=== PATIENT | male | born 1960 ===

== ENCOUNTER 2017-09-16 21:31 | Emergency (ER) | payer MEDICAID ==
[2017-09-16 22:09] VITALS: TEMP 97.5
[2017-09-16] MEDS ORDERED: Albuterol-Ipratrop 3 mg / 0.5 (3 ml) UD ONE (22:19)
[2017-09-16] MEDS ORDERED: TDAP Vaccine 0.5 mL Syr IM ONE (22:47)
[2017-09-16] MEDS ORDERED: Albuterol 0.083% Inhal Sol (2.5 mg/3 mL) UD IH STA (22:48)
[2017-09-16 23:15] LABS: BASO # 0.05 K/mm3 (0.0-2.0); BASO % 0.5 % (0.0-3.0); EOS # 0.3 (0.0-0.7); EOS % 2.8 % (1.5-5.0); GRAN # 6.24 (1.4-6.5); GRAN % 61.3 % (50.0-68.0); HEMOGLOBIN 16.9 g/dL (14.0-18.0); LYMPH % 29.5 % (22.0-35.0); MEAN CELL VOLUME 96.8 fl (80.0-105.0); MEAN CORPUSCULAR HEMOGLOBIN 33.7 pg (25.0-35.0); MEAN CORPUSCULAR HGB CONC 34.8 g/dl (31.0-37.0); MEAN PLATELET VOLUME 10.3 fl (7.0-11.0); MONO # 0.6 (0.1-0.6); MONO % 5.9 % (1.0-6.0); RBC 5.01 10^6/uL (3.5-6.1); WHITE BLOOD COUNT 10.2 10^3/ul (4.5-11.0)
[2017-09-16 23:21] LABS: ALB/GLOB RATIO 1.5 (1.1-1.8); ALBUMIN 5.1 g/dL (3.0-4.8); ALT/SGPT 27 U/L (7-56); AST/SGOT 27 U/L (17-59); BLOOD UREA NITROGEN 8 mg/dL (7-21); CALCIUM 9.8 mg/dL (8.4-10.5); GFR AFRICAN-AMERICAN > 60; GFR NON-AFRICAN AMERICAN > 60
[2017-09-16 23:56] LABS: INR 0.96 (0.93-1.08); PARTIAL THROMBOPLASTIN TIME 31.1 Seconds (25.1-36.5); PROTHROMBIN TIME 10.9 SECONDS (9.4-12.5)
--- NOTE | 2017-09-17 02:38 | ED PDOC ---
Arrival/HPI - General Historian: Patient, EMS - History of Present Illness Time/Duration: Prior to Arrival <Lizbeth Terrazas - Last Filed: 09/17/17 02:57> <Nicola Henderson - Last Filed: 09/17/17 06:24> - General Chief Complaint: Trauma Time Seen by Provider: 09/16/17 22:13 - History of Present Illness Narrative History of Present Illness (Text): 09/17/17 02:27 57yr old male presents today status post fall. Patient admits to drinking alcohol today. Patient denies chest pain. Patient states he tripped and fell forward hitting his head. Patient states she was supposed to have a neck surgery today that it was canceled because of issues with the surgeon. Patient denies numbness weakness or tingling in the extremities. Patient denies fevers or chills. Patient states he has a history of asthma and thinks he may need a breathing treatment. Patient is unsure of his last tetanus shot. pt denies abdominal pain, no n/v/d/c. no other complaints. (Lizbeth Terrazas) Past Medical History - Provider Review Nursing Documentation Reviewed: Yes - Travel History Have you recently traveled outside [place] w/in the past 3 mons?: No - Infectious Disease Hx of Infectious Diseases: None - Tetanus Immunization Tetanus Immunization: Unknown - Psychiatric Hx Substance Use: No <Lizbeth Terrazas - Last Filed: 09/17/17 02:57> Family/Social History - Physician Review Nursing Documentation Reviewed: Yes Family/Social History: Unknown Family HX Smoking Status: Unknown If Ever Smoked Hx Alcohol Use: Yes Hx Substance Use: No <Lizbeth Terrazas - Last Filed: 09/17/17 02:57> Allergies/Home Meds <Lizbeth Terrazas - Last Filed: 09/17/17 02:57> <Nicola Henderson - Last Filed: 09/17/17 06:24> Allergies/Adverse Reactions: Allergies No Known Allergies Allergy (Verified 09/16/17 22:14) Home Medications: Home Meds Medication Instructions Recorded Confirmed Unobtainable 09/16/17 09/16/17 Review of Systems - Review of Systems Constitutional: absent: Fevers Respiratory: Wheezing. absent: SOB, Cough Cardiovascular: absent: Chest Pain, Palpitations Gastrointestinal: absent: Abdominal Pain, Constipation, Diarrhea, Nausea, Vomiting Genitourinary Male: absent: Dysuria, Frequency, Hematuria Musculoskeletal: Back Pain (chronic back pain), Neck Pain (chronic). absent: Arthralgias Skin: Laceration (scalp), Other (abrasion: forehead) Neurological: absent: Headache Psychiatric: absent: Anxiety, Depression, Suicidal Ideation <Lizbeth Terrazas - Last Filed: 09/17/17 02:57> Physical Exam Vital Signs Reviewed: Yes Temperature: Afebrile Blood Pressure: Normal Pulse: Tachycardic Respiratory Rate: Normal Appearance: Positive for: Well-Appearing, Non-Toxic, Comfortable Pain Distress: None Mental Status: Positive for: Alert and Oriented X 3 Finger Stick Blood Glucose: 92 - Systems Exam Head: Present: Abrasion (2 small abrasions noted to right forehead), Laceration (2cm linear laceration noted to left posterior scalp; no active bleeding; no step offs or crepitus). No: Atraumatic Pupils: Present: PERRL Extroacular Muscles: Present: EOMI Conjunctiva: Present: Normal Mouth: Present: Moist Mucous Membranes Neck: Present: Normal Range of Motion, Trachea Midline. No: MIDLINE TENDERNESS , Paraspinal Tenderness Respiratory/Chest: Present: Clear to Auscultation, Good Air Exchange. No: Respiratory Distress, Accessory Muscle Use, Wheezes, Retracting, Rhonchi, Tachypneic Cardiovascular: Present: Tachycardic Abdomen: No: Tenderness, Distention, Rebound, Guarding Back: Present: Normal Inspection. No: Midline Tenderness, Paraspinal Tenderness Upper Extremity: Present: Normal ROM Lower Extremity: Present: Normal ROM Neurological: Present: GCS=15, Speech Normal Skin: Present: Warm, Dry, Normal Color Psychiatric: Present: Alert, Oriented x 3, Intoxicated. No: Suicidal Ideation, Homicidal Ideation <Lizbeth Terrazas - Last Filed: 09/17/17 02:57> Vital Signs Temp Pulse Resp BP Pulse Ox 09/17/17 05:03 86 16 102/53 L 96 09/17/17 02:21 89 18 100/56 L 95 09/17/17 00:51 101 H 20 119/43 L 94 L 09/16/17 21:37 97.5 F L 107 H 16 150/90 98 Medical Decision Making <Lizbeth Terrazas - Last Filed: 09/17/17 02:57> <Nicola Henderson - Last Filed: 09/17/17 06:24> ED Course and Treatment: 09/17/17 02:44 57yr old male with head injury s/p fall. pt intoxicated; alert and oriented; pt requesting "albuterol pump" states he has asthma; albuterol nebulizer given; tetanus updated. ct of head ordered. cbc: wnl cmp: NA; 150 glucose:130 pt/inr; wnl cxr; wnl wounds irrigated with copious amounts of NS using high pressure irrigation. pt became agitated in ER; started yelling and screaming and threatening staff. pt placed into 4 point restraints and given 2 of ativan IM. for safety of patient and staff. pt is refusing CT of head; pt refusing laceration repair with jocelyn or sutures; pt has agreed to laceration repair of scalp with dermabond. 09/17/17 02:51 case signed out to dr. henderson pending CT head, sobriety and re-evaluation (Lizbeth Terrazas) 09/17/17 03:32: Case endorsed to me by SHAHIDA Terrazas. Pending Head CT and sobriety. Will re-evaluate and disposition. 09/17/17 06:22 Pt. is awake,alert sober with steady gait in ED. (Nicola Henderson) - Lab Interpretations Lab Results: 09/16/17 23:00 09/16/17 23:00 Lab Results 09/16/17 23:00: WBC 10.2, RBC 5.01, Hgb 16.9, Hct 48.5, MCV 96.8, MCH 33.7, MCHC 34.8, RDW 12.0, Plt Count 291, MPV 10.3, Gran % 61.3, Lymph % (Auto) 29.5, [facility] % (Auto) 5.9, Eos % (Auto) 2.8, Baso % (Auto) 0.5, Gran # 6.24, Lymph # ( Auto) 3.0, [facility] # (Auto) 0.6, Eos # (Auto) 0.3, Baso # (Auto) 0.05 09/16/17 23:00: Alcohol, Quantitative 266 H 09/16/17 23:00: Sodium 152 H, Potassium 4.3, Chloride 110 H, Carbon Dioxide 25, Anion Gap 21 H, BUN 8, Creatinine 1.0, Est GFR ( Amer) > 60, Est GFR (Non -Af Amer) > 60, Random Glucose 130 H, Calcium 9.8, Total Bilirubin 0.4, AST 27, ALT 27, Alkaline Phosphatase 98, Total Protein 8.5 H, Albumin 5.1 H, Globulin 3.4, Albumin/Globulin Ratio 1.5 09/16/17 23:00: PT 10.9, INR 0.96, APTT 31.1 - RAD Interpretation Radiology Orders: 09/16/17 22:14 CERVICAL SPINE W/O CONTRAST [CT] Stat HEAD W/O CONTRAST [CT] Stat CHEST PORTABLE [RAD] Stat - Medication Orders Current Medication Orders: Discontinued Medications Albuterol Sulfate (Albuterol 0.083% Inhal Yoana (2.5 Mg/3 Ml) Ud) 2.5 mg IH STAT STA Stop: 09/16/17 22:49 Last Admin: 09/16/17 22:19 Dose: 2.5 mg Lorazepam (Ativan) 2 mg IM ONCE ONE PRN Reason: Protocol Stop: 09/16/17 23:41 Last Admin: 09/16/17 23:42 Dose: 2 mg IM Administration Charges Document 09/16/17 23:42 CNR (Rec: 09/17/17 00:33 CNR [id number]) Injection Site MAR Injection Site Right Deltoid Charges for Administration # of IM Administrations 1 Tetanus/Reduced Diphtheria/Acell Pertussis (Boostrix Vaccine Inj) 0.5 ml IM .ONCE ONE Stop: 09/16/17 22:48 Last Admin: 09/16/17 23:07 Dose: 0.5 ml Immunization Registry Document 09/16/17 23:07 CNR (Rec: 09/16/17 23:07 CNR [id number]) Immunization Registry Consent Date 09/16/17 Procedure: Wound Repair - Procedure Procedure: Wound Repair: scalp laceration - Consent Obtained Consent obtained: Verbal - Performed by Performed by: Mid-level Provider - Indications Indication(s):: Laceration - Location Dimensions Length cm: 2cm Depth:: Epidermis - Debris Debris:: None - Irrigated Irrigated with ml of normal saline: copious amounts of NS using high pressure irrigation - Complexity Complexity:: Simple (one layer) - Wound repair method [place]:: Tissue glue - Complications Complications: none - Patient tolerated procedure Patient Tolerated Procedure:: Well <Lizbeth Terrazas - Last Filed: 09/17/17 02:57> - PA / ED PHYSICIANS / Resident Statement / has reviewed & agrees with the documentation as recorded. / has examined the patient and agrees with the treatment plan. <Nicola Henderson - Last Filed: 09/17/17 06:24> Disposition/Present on Arrival - Present on Arrival Any Indicators Present on Arrival: No History of DVT/PE: No History of Uncontrolled Diabetes: No Urinary Catheter: No History of Decub. Ulcer: No History Surgical Site Infection Following: None - Disposition Have Diagnosis and Disposition been Completed?: Yes <Lizbeth Terrazas - Last Filed: 09/17/17 02:57> - Present on Arrival Any Indicators Present on Arrival: No - Disposition Have Diagnosis and Disposition been Completed?: Yes Disposition Time: 06:21 Patient Plan: Discharge <AnthonyNicola - Last Filed: 09/17/17 06:24> - Disposition Diagnosis: Alcohol abuse, Head injury, Laceration of head, Abrasion of forehead Disposition: HOME/ ROUTINE Patient Problems: Current Active Problems Problem Status Onset Abrasion of forehead Acute Alcohol abuse Acute Head injury Acute Laceration of head Acute Condition: GOOD Discharge Instructions (ExitCare): Closed Head Injury (DC), Alcohol Abuse and Alcoholism (DC) Additional Instructions: follow up with the primary care physician keep wounds clean and dry apply bacitracin twice daily return immediately if symptoms worsen,persist or if new symptoms develop. Referrals: [facility] at [facility] [place]] - Follow up with primary Forms: [employer] (Spanish), WORK NOTE
[2017-09-17 05:04] VITALS: BP 102/53; PULSE 86; RESP 16; O2SAT 96
--- NOTE | 2017-09-17 05:57 | CT ---
EXAM: CT Head Without Intravenous Contrast CLINICAL HISTORY: 57 years old, male; Pain; Headache TECHNIQUE: Axial computed tomography images of the head/brain without intravenous contrast. All CT scans at this facility use one or more dose reduction techniques, viz.: automated exposure control; ma/kV adjustment per patient size (including targeted exams where dose is matched to indication; i.e. head); or iterative reconstruction technique. Coronal and sagittal reformatted images were created and reviewed. COMPARISON: No relevant prior studies available. FINDINGS: Brain: Minimal atrophy. No intracranial hemorrhage. No mass. No definite edema. Ventricles: No hydrocephalus. Bones/joints: No acute fracture. Soft tissues: Unremarkable. Sinuses: No acute sinusitis. Mastoid air cells: No mastoid effusion. Orbits: Unremarkable as visualized. IMPRESSION: 1. No definite acute intracranial abnormality. 2. Incidental/non-acute findings are described above.
--- NOTE | 2017-09-17 06:01 | CT ---
EXAM: CT Cervical Spine Without Intravenous Contrast CLINICAL HISTORY: 57 years old, male; Pain; Neck pain TECHNIQUE: Axial computed tomography images of the cervical spine without intravenous contrast. All CT scans at this facility use one or more dose reduction techniques, viz.: automated exposure control; ma/kV adjustment per patient size (including targeted exams where dose is matched to indication; i.e. head); or iterative reconstruction technique. Coronal and sagittal reformatted images were created and reviewed. COMPARISON: No relevant prior studies available. FINDINGS: Vertebrae: No acute fracture. Anterior osteophytes within mid to lower cervical spine. Early facet osteoarthrosis. Discs/spinal canal/neural foramina: Early degenerative disc disease within mid and lower cervical spine. Mild disc herniation C5-C6 level. No significant spinal stenosis. Soft tissues: Unremarkable. Sinuses: Mild mucosal thickening of visualized RIGHT maxillary sinus. Lung apices: Bullous changes/scarring. IMPRESSION: 1. No fracture. 2. If neck pain persists, consider MRI for further evaluation. 3. Incidental/non-acute findings are described above.
--- NOTE | 2017-09-17 08:47 | RAD ---
HISTORY: Fall. COMPARISON: No prior. FINDINGS: LUNGS: No active pulmonary disease. PLEURA: No significant pleural effusion identified, no pneumothorax apparent. CARDIOVASCULAR: Normal. OSSEOUS STRUCTURES: No significant abnormalities. VISUALIZED UPPER ABDOMEN: Normal. OTHER FINDINGS: None. IMPRESSION: No active disease.
== END 2017-09-17 06:44 | disposition home or self-care (01) ==
LOC: ED 21:31
DX: S00.81XA Abrasion of other part of head, initial encounter (principal); S01.01XA Laceration without foreign body of scalp, initial encounter; W01.0XXA Fall on same level from slipping, tripping and stumbling without subsequent striking against object, initial encounter; F10.10 Alcohol abuse, uncomplicated; Z23 Encounter for immunization
CPT/HCPCS: 12001; 70450; 71045; 72125; 80053; 80320; 85025; 85610; 85730; 90471; 90715; 94640; 96372; 99285; J2060

== ENCOUNTER 2017-09-20 15:32 | Emergency (ER) | payer MEDICAID ==
--- NOTE | 2017-09-20 16:29 | ED PDOC ---
Arrival/HPI - General Chief Complaint: Suture/Staple Removal Time Seen by Provider: 09/20/17 16:24 Historian: Patient - History of Present Illness Narrative History of Present Illness (Text): 09/20/17 16:26 57yr old male presents today for wound check to scalp. pt was seen in er on for alcohol intoxication with fall. pt denies fever/chills. pt states he wasnt sure if he had glue or jocelyn/sutures. pt denies dizziness or weakness. no cp or sob. no abdominal pain. no n/v/d/c. Past Medical History - Provider Review Nursing Documentation Reviewed: Yes - Travel History Have you recently traveled outside [place] w/in the past 3 mons?: No - Infectious Disease Hx of Infectious Diseases: None - Tetanus Immunization Tetanus Immunization: Up to Date - Psychiatric Hx Substance Use: No Family/Social History - Physician Review Nursing Documentation Reviewed: Yes Family/Social History: Unknown Family HX Smoking Status: Unknown If Ever Smoked Hx Alcohol Use: Yes Hx Substance Use: No Allergies/Home Meds Allergies/Adverse Reactions: Allergies No Known Allergies Allergy (Verified 09/16/17 22:14) Home Medications: Home Meds Medication Instructions Recorded Confirmed No Known Home Med 09/20/17 09/20/17 Review of Systems - Review of Systems Constitutional: absent: Fatigue, Fevers Respiratory: absent: SOB, Cough Cardiovascular: absent: Chest Pain, Palpitations Gastrointestinal: absent: Abdominal Pain, Constipation, Diarrhea, Nausea, Vomiting Genitourinary Male: absent: Dysuria Musculoskeletal: Back Pain (chronic), Neck Pain (chronic). absent: Arthralgias Skin: Laceration (scalp laceration) Neurological: absent: Headache, Dizziness, Focal Weakness, Gait Changes, Speech Changes, Facial Droop, Disequilibrium Psychiatric: absent: Anxiety, Depression, Suicidal Ideation Physical Exam Vital Signs Reviewed: Yes Vital Signs Temp Pulse Resp BP Pulse Ox 09/20/17 16:05 98.2 F 90 17 129/84 96 Temperature: Afebrile Blood Pressure: Normal Pulse: Regular Respiratory Rate: Normal Appearance: Positive for: Well-Appearing, Non-Toxic, Comfortable Pain Distress: None Mental Status: Positive for: Alert and Oriented X 3 - Systems Exam Head: Present: Laceration (there is a healing laceration to posterior scalp with dermabond in place; no erythema, no edema, no ecchymosis) Pupils: Present: PERRL Extroacular Muscles: Present: EOMI Mouth: Present: Moist Mucous Membranes Neck: Present: Normal Range of Motion. No: MIDLINE TENDERNESS, Paraspinal Tenderness Respiratory/Chest: Present: Clear to Auscultation, Good Air Exchange. No: Respiratory Distress, Accessory Muscle Use Cardiovascular: Present: Regular Rate and Rhythm, Normal S1, S2. No: Murmurs Abdomen: No: Tenderness Upper Extremity: Present: Normal ROM Lower Extremity: Present: Normal ROM Neurological: Present: GCS=15, Speech Normal Skin: Present: Warm, Dry, Normal Color Psychiatric: Present: Alert, Oriented x 3 Medical Decision Making ED Course and Treatment: 09/20/17 16:31 57yr old male presents for wound check. pt with healing laceration to scalp; dermabond in place. no surrounding erythema /edema. pt was advised to f/u with PMD, advised return if any concerning symptoms develop. Patient verbalizes understanding of discharge instructions and need for immediate followup. all aspects of this case were discussed the attending of record. impression: wound check, scalp laceration keep wound clean and dry follow up with the primary care physician within the next 2 days increase fluids return if symptoms worsen,persist or if new symptoms develop. Disposition/Present on Arrival - Present on Arrival Any Indicators Present on Arrival: No History of DVT/PE: No History of Uncontrolled Diabetes: No Urinary Catheter: No History of Decub. Ulcer: No History Surgical Site Infection Following: None - Disposition Have Diagnosis and Disposition been Completed?: Yes Diagnosis: Encounter for wound re-check Disposition: HOME/ ROUTINE Disposition Time: 16:42 Patient Plan: Discharge Condition: GOOD Additional Instructions: keep wound clean and dry follow up with the primary care physician within the next 2 days increase fluids return if symptoms worsen,persist or if new symptoms develop. Referrals: [facility] at [facility] [place] [Outside] - Follow up with primary Osmin Bean MD [Staff Provider] - Follow up with primary Forms: [employer] (Iranian), WORK NOTE
[2017-09-20 16:31] VITALS: BP 129/84; PULSE 90; RESP 17; TEMP 98.2; O2SAT 96
== END 2017-09-20 17:00 | disposition home or self-care (01) ==
LOC: ED 15:32
DX: Z51.89 Encounter for other specified aftercare (principal)